=== PATIENT | male | born 1950 | race Caucasian/White ===

== ENCOUNTER 2019-01-11 08:40 | Inpatient (IN) ==
--- NOTE | 2018-12-23 08:50 | PAT Medication Instructions ---
Medication Instructions Date of Service December 23, 2018 Home Medications atorvastatin 40 mg PO HS cholecalciferol (vitamin D3) 5,000 unit PO QAM finasteride 5 mg PO QAM lisinopril 2.5 mg PO QAM loratadine [Claritin] 10 mg PO QAM meloxicam 15 mg PO QAM metformin 500 mg PO BID polyethylene glycol 3350 [Miralax] 17 g PO QDL potassium chloride 20 meq PO HS potassium chloride 40 meq PO QAM ranitidine HCl 150 mg PO BID spironolactone 50 mg PO QAM tamsulosin 0.4 mg PO QAM ASK your surgeon for instructions meloxicam 15 mg PO QAM DO NOT take the morning of surgery cholecalciferol (vitamin D3) 5,000 unit PO QAM finasteride 5 mg PO QAM lisinopril 2.5 mg PO QAM loratadine [Claritin] 10 mg PO QAM metformin 500 mg PO BID polyethylene glycol 3350 [Miralax] 17 g PO QDL potassium chloride 40 meq PO QAM spironolactone 50 mg PO QAM Take morning of surgery With a small sip of water, OTHERWISE NOTHING TO EAT OR DRINK AFTER MIDNIGHT: ranitidine HCl 150 mg PO BID tamsulosin 0.4 mg PO QAM Take evening before surgery atorvastatin 40 mg PO HS potassium chloride 20 meq PO HS ranitidine HCl 150 mg PO BID Other Notes If you have any questions please call us at [phone] or [phone] or [phone] or [phone]
--- NOTE | 2018-12-23 10:42 | Anesthesiology Consultation ---
Date of Service December 23, 2018 Assessment & Plan (1) Encounter for pre-operative examination: Plan: CHECK BSG AM DOS Chart Review Chart Review: Acceptable Risk for Surgery and Patient seen in Pre Admission Testing Teaching & Discussion Instructed NPO after midnight before surgery, except medications with 15 cc of water. Medication instructions provided according to the PAT guidelines. History Surgery Operation Date: 01/11/19 07:45 Proposed Procedures p L4-S1 Posterior Lumbar Decompression - Dalton Ware DO Height/Weight Height: 5 ft 11 in Weight: 154.6 kg Allergies Allergy/AdvReac Type Severity Reaction Status Date / Time Cipro Allergy Unknown "IT Verified 11/13/16 08:59 AFFECTS MY ACHILLES HEEL" ciprofloxacin Allergy Unknown "IT Verified 12/18/18 11:44 AFFECTS MY ACHILLES HEEL" Medications Home Medications Medication Instructions Recorded Confirmed Last Taken atorvastatin 40 mg PO HS 12/18/18 12/18/18 Unknown cholecalciferol (vitamin D3) 5,000 unit PO QAM 12/18/18 12/18/18 Unknown [Vitamin D3] finasteride 5 mg PO QAM 12/18/18 12/18/18 Unknown lisinopril 2.5 mg PO QAM 12/18/18 12/18/18 Unknown loratadine [Claritin] 10 mg PO QAM 12/18/18 12/18/18 Unknown meloxicam 15 mg PO QAM 12/18/18 12/18/18 Unknown metformin 500 mg PO BID 12/18/18 12/18/18 Unknown polyethylene glycol 3350 [Miralax] 17 g PO QDL 12/18/18 12/18/18 Unknown potassium chloride 20 meq PO HS 12/18/18 12/18/18 Unknown potassium chloride 40 meq PO QAM 12/18/18 12/18/18 Unknown ranitidine HCl 150 mg PO BID 12/18/18 12/18/18 Unknown spironolactone 50 mg PO QAM 12/18/18 12/18/18 Unknown tamsulosin 0.4 mg PO QAM 12/18/18 12/18/18 Unknown Past Medical History Medical History BPH (benign prostatic hyperplasia) Diabetes mellitus, type 2 Environmental allergies GERD (gastroesophageal reflux disease) Hyperlipidemia Hypertension Seasonal allergies Past Surgical History Surgical History H/O hemicolectomy 2/2 bowel obstruction History of knee replacement Both knees done x2 Hx of abdominal surgery For adhesions Hx of colonoscopy Hx of shoulder surgery rotator cuff repairs both shoulders Past Anesthesia History No Hx of Anesthesia Complications and No Family Hx of Anesthesia Complications 2015 RCR @ [facility]: MAC #4, ETT 7.5. Atraumatic DL x 1. History of PONV No Motion Sickness Screening History of Motion Sickness: Yes (occasionally) Social History Smoking Status: Former smoker Smoking cigarettes per day: h/o 1ppd x 25yrs Do You Dip or Chew Tobacco: No Smoking End Date: 1988 Hx Alcohol Use: Yes Alcohol type: beer alcohol intake frequency: a few times a month Hx Substance Use: No Exercise / Class Metabolic Activity II 4-5 Yardwork/Stairs/Walk up hill (has full flight of stairs at home, denies CP or SOB with stairs) Review of Systems Pt denies any recent chest pain, shortness of breath, palpitations, cough, fever or URI. Physical Exam Vital Signs BP: 108/73 P: 87bpm SPO2: 93% RA T: 98.2 F R: 18 Constitutional + morbidly obese ENMT Mouth: + dental restorations (one crown on a molar); no chipped teeth and no loose teeth Thyromental Distance: > or= 3.5 Finger Breadths (3.5) Mallampati Class: I Neck + short neck, + thick neck and + limited neck extension Respiratory normal respiratory effort Auscultation: lungs clear to auscultation bilaterally Cardiovascular Rate/Rhythm: regular rate and regular rhythm Heart Sounds: no murmur Vessels: no carotid bruit Testing Electrocardiogram Date: 12/23/18 Findings: + NSR @ (83) Chest X-Ray Date: 12/23/18 Findings: + NAD Laboratory Results 12/23/18 11:01 12/23/18 11:01 Blood Type O Positive 12/23/18 11:01 Antibody Screen NEGATIVE 12/23/18 11:01 PT 10.1 Seconds (9.0-12.0) 12/23/18 11:01 INR 1.0 (0.9-1.1) 12/23/18 11:01 APTT 27.0 Seconds (21.0-31.0) 12/23/18 11:01 Hemoglobin A1c 6.0 % (4.5-5.6) H 12/23/18 11:01 Urine Color Yellow 12/23/18 Unknown Urine Appearance Clear (Clear) 12/23/18 Unknown Urine pH 7.0 (4.5-7.5) 12/23/18 Unknown Ur Specific [place] 1.014 (1.000-1.030) 12/23/18 Unknown Urine Protein Negative (Negative) 12/23/18 Unknown Urine Glucose (UA) Negative (Negative) 12/23/18 Unknown Urine Ketones Negative (Negative) 12/23/18 Unknown Urine Nitrite Negative (Negative) 12/23/18 Unknown Ur Leukocyte Esterase Negative (Negative) 12/23/18 Unknown
--- NOTE | 2018-12-23 11:20 | XRay Report ---
XR chest Pre-admission PA/Lat CLINICAL HISTORY: Preoperative chest COMPARISON STUDY: 11/15/2011 FINDINGS: The cardiac and mediastinal contours are normal. There is no evidence of focal pulmonary co nsolidation. There is no evidence of failure. No pleural effusions are visualized.[ Presumed postsurg ical changes involve the distal clavicles. IMPRESSION: No active disease in the chest. Electronically signed by: Wyatt Phelps M.D. 12/23/2018 11:18 AM
[2018-12-23 12:19] LABS: Basophils # (auto) 0.05 K/uL (0-0.2); Basophils % (auto) 0.6 %; Eosinophils # (auto) 0.17 K/uL (0-0.5); Eosinophils % (auto) 2.1 %; Hematocrit (blood only) 39.2 % (42-52); Immature Granulocytes # (auto) 0.03 K/uL (0.00-0.02); Immature Granulocytes % (auto) 0.4 %; Lymphocytes # (auto) 1.94 K/uL (1.2-3.4); Lymphocytes % (auto) 23.9 %; Mean Corpuscular Hgb Conc 33.2 g/dL (32-36); Mean Corpuscular Volume 98.2 fL (80-100); Mean Platelet Volume 11.1 fL (7.4-10.4); Monocytes # (auto) 0.69 K/uL (0.11-0.59); Monocytes % (auto) 8.5 %; Neutrophils # (auto) 5.23 K/uL (1.4-6.5); Neutrophils % (auto) 64.5 %; Platelet Count 262 K/uL (130-400); RDW Coefficient of Variation 13.2 % (11.5-14.5); RDW Standard Deviation 47.3 fL (36.4-46.3); Red Blood Count 3.99 M/uL (4.7-6.1); White Blood Count 8.11 K/uL (4.8-10.8)
[2018-12-23 12:25] LABS: Appearance Urine Clear (Clear); Bilirubin Urine Negative (Negative); Color Urine Yellow; Glucose Urine UA Negative (Negative); Ketones Urine Negative (Negative); Leukocyte Esterase Urine Negative (Negative); Nitrite Urine Negative (Negative); Protein Urine Negative (Negative); Specific Gravity Urine 1.014 (1.000-1.030); Urobilinogen Urine Negative (Negative)
[2018-12-23 12:26] LABS: BUN Creatinine Ratio 16.1 (10-20); Creatinine Clr Calc Pharmacy 87.4 ml/min; Est GFR (African American) 71.3; Est GFR (Non-African American) 61.5; Potassium 4.2 mmol/L (3.5-5.1)
[2018-12-23 12:32] LABS: Prothrombin Time 10.1 Seconds (9.0-12.0)
[2018-12-23 13:18] LABS: Estimated Average Glucose 126 mg/dl
[~2019-01-11 08:40] MED LIST: ACETAMINOPHEN 500 MG TAB PO SCH; CEFAZOLIN 3000MG 65 ML IV SCH; CeleBREX 200 MG CAP PO SCH; GABAPENTIN 300 MG PO SCH; LR 15ML/HR IV SCH
[2019-01-11] MEDS ORDERED: ROCURONIUM BROMIDE 10 MG/ML 5 ML VIAL ONE (10:12)
[2019-01-11] MEDS ORDERED: LIDOCAINE HCL 2% 2 ML VIAL/AMP(20MG/ML) INFIL ONE (10:12)
[2019-01-11] MEDS ORDERED: PROPOFOL IV EMULSION 10 MG/ML 20 ML VIAL IV ONE (10:12)
[2019-01-11] MEDS ORDERED: MIDAZOLAM HCL 1 MG/ML 2ML VIAL ONE (10:13)
[2019-01-11] MEDS ORDERED: fentaNYL citrate 100 MCG/2 ML VIAL ONE ×5 (10:13→11:48)
[2019-01-11] MEDS ORDERED: PHENYLEPHRINE 100MCG/ML 5ML SYR IV PRN (10:14)
[2019-01-11] MEDS ORDERED: ONDANSETRON INJ 2 MG/ML 2 ML VIAL IV PRN ×2 (10:14→15:48)
[2019-01-11] MEDS ORDERED: MEPERIDINE HCL 25 MG/ML CARP IV PRN (10:14)
[2019-01-11] MEDS ORDERED: fentaNYL citrate 100 MCG/2 ML VIAL IV PRN (10:14)
[2019-01-11] MEDS ORDERED: ePHEDrine sulfate 50 MG/ML AMP IV PRN (10:14)
[2019-01-11] MEDS ORDERED: HYDROmorphone INJ 1 MG/ML SYRINGE IV PRN (10:14)
[2019-01-11] MEDS ORDERED: LABETALOL HCL IV 5 MG/ML 20ML IV PRN (10:14)
[2019-01-11] MEDS ORDERED: ATROPINE SULFATE 0.1 MG/ML 10ML SYR IV PRN (10:14)
--- NOTE | 2019-01-11 10:42 | History & Physical Bridge Note ---
Date of Service January 11, 2019 History & Physical Bridge Note I have examined the patient, reviewed the History & Physical and in the interval since the performance of the History & Physical I have noted the following changes of clinical significance: no changes noted
--- NOTE | 2019-01-11 10:43 | History & Physical Report ---
Date of Service January 11, 2019 Assessment & Plan (1) Neurogenic claudication due to lumbar spinal stenosis: Posterior lumbar decompression fusion L4-S1 Present on Admission?: Yes History of Present Illness Chief Complaint: Back and leg pain Primary Care Provider: Arthur Kendall This is a 68-year-old male that presents with chronic persistent back and leg pain. After failing extensive course of nonoperative care is here for surgical intervention. Allergies Allergy/AdvReac Type Severity Reaction Status Date / Time Cipro Allergy Unknown "IT Verified 11/13/16 08:59 AFFECTS MY ACHILLES HEEL" ciprofloxacin Allergy Unknown "IT Verified 01/11/19 09:15 AFFECTS MY ACHILLES HEEL" Home Medications Home Medications Medication Instructions Recorded Confirmed Type atorvastatin 40 mg PO HS 12/18/18 01/11/19 History cholecalciferol (vitamin D3) 5,000 unit PO QAM 12/18/18 01/11/19 History [Vitamin D3] finasteride 5 mg PO QAM 12/18/18 01/11/19 History lisinopril 2.5 mg PO QAM 12/18/18 01/11/19 History loratadine [Claritin] 10 mg PO QAM 12/18/18 01/11/19 History meloxicam 15 mg PO QAM 12/18/18 12/18/18 History metformin 500 mg PO BID 12/18/18 01/11/19 History polyethylene glycol 3350 [Miralax] 17 g PO QDL 12/18/18 01/11/19 History potassium chloride 20 meq PO HS 12/18/18 01/11/19 History potassium chloride 40 meq PO QAM 12/18/18 01/11/19 History ranitidine HCl 150 mg PO BID 12/18/18 01/11/19 History spironolactone 50 mg PO QAM 12/18/18 01/11/19 History tamsulosin 0.4 mg PO QAM 12/18/18 01/11/19 History Past Med/Surg History Medical History BPH (benign prostatic hyperplasia) Diabetes mellitus, type 2 Environmental allergies GERD (gastroesophageal reflux disease) Hyperlipidemia Hypertension Seasonal allergies Surgical History H/O hemicolectomy 2/2 bowel obstruction History of knee replacement Both knees done x2 Hx of abdominal surgery For adhesions Hx of colonoscopy Hx of shoulder surgery rotator cuff repairs both shoulders Social History Current Living Situation: Spouse Other Information That Helps Us Care for You: No Feels Safe at Home: Yes Safety Concerns: Feels Safe At This Time Smoking Status: Former smoker Cigarettes per Day: h/o 1ppd x 25yrs Do You Dip or Chew Tobacco: No Smoking End Date: 1988 Hx Alcohol Use: Yes Alcohol type: beer Alcohol Intake Frequency: a few times a month Hx Substance Use: No Beliefs That Will Affect Care: None Preferred Language: Nigerien Communication Ability: Effective Physical Exam 2 Vital Signs (Past 24 Hours): Last Vital Signs Temp 37.1 C 01/11/19 09:30 Pulse 91 H 01/11/19 09:30 Resp 20 01/11/19 09:30 BP 117/79 01/11/19 09:30 Pulse Ox 95 01/11/19 09:30 Results & Data Medications Administered Acetaminophen (Tylenol) 1,000 mg PO PREOP BIPIN Stop: 01/11/19 18:00 Last Admin: 01/11/19 09:57 Dose: 1,000 mg Celecoxib (Celebrex) 200 mg PO PREOP BIPIN Stop: 01/11/19 18:00 Last Admin: 01/11/19 09:56 Dose: 200 mg Gabapentin (Neurontin) 300 mg PO PREOP BIPIN Stop: 01/11/19 18:00 Last Admin: 01/11/19 09:56 Dose: 300 mg Lactated Ringer's (Lr) 1,000 mls @ 15 mls/hr IV .Q24H BIPIN Stop: 01/12/19 05:59 Last Admin: 01/11/19 09:39 Dose: 15 mls/hr
[2019-01-11] MEDS ORDERED: BACITRACIN INJ 50,000 UNIT VIAL ONE (10:48)
[2019-01-11] MEDS ORDERED: BUPIVACAINE/EPINEPHRINE 0.5% MPF 1:200,000 30 ML VIAL ONE (10:48)
[2019-01-11] MEDS ORDERED: FLOSEAL HEMOSTATIC MATRIX 10ML TOP ONE (12:41)
[2019-01-11] MEDS ORDERED: HYDROmorphone INJ 2 MG/ML SYR/VIAL ONE (12:55)
--- NOTE | 2019-01-11 13:51 | Fluoroscopy Report ---
FL lumbar spine 2-3V CLINICAL HISTORY: L4-S1 DECOMP/FUSIONpostoperative COMPARISON STUDY: None FLUOROSCOPY TIME: 25 seconds NUMBER OF FLUOROSCOPIC IMAGES: 3 FINDINGS: Low lumbar laminectomy and fusion IMPRESSION: Findings consistent with an L4-S1 laminectomy and fusion. The above report was generated using voice recognition software. It may contain grammatical, syntax or spelling errors. Electronically signed by: Eloy Kent M.D. 01/11/2019 1:50 PM
--- NOTE | 2019-01-11 13:55 | Operative Report ---
Post Operative Report Pre & Post Diagnosis Operation Date: 01/11/19 10:55 Pre-Op Diagnosis: Neurogenic claudication due to lumbar spinal stenosis Post-Op Diagnosis: Neurogenic claudication due to lumbar spinal stenosis Procedure Operation Date: 01/11/19 10:55 Actual Procedures #1 lumbar decompression medial facetectomies foraminotomies L3-4 L4-5 L5-S1 per #2 posterior spinal fusion L4-5 L5-S1. #3 please posterior segmental instrumentation L4-5 L5-S1. #4 interbody fusion L4-5 L5-S1. #5 placed titanium 12 x 26 mm cage L4-5 and 11 x 26 at L5-S1. #6 treatment of local autograft in the posterior gutters. #7 placement Feese collagen sponge bone mass graft in the posterior gutters and ostial amp and interbody space. Surgeon Dalton Ware DO Erecting Crane Operator Stella Harmon Estimated Blood Loss 250 Findings Consistent with Post-Op Diagnosis Specimens None Description of Procedure Patient was met with preoperatively case discussed all questions addressed. After informed consent obtained patient was taken to the operative suite underwent intubation placed in a prone position Hossein table on top of the Gabriel frame. All bony prominences well-padded eyes inspected to ensure no external pressure placed upon the. This point the lumbar spine was prepped and draped in normal sterile fashion. Sharp dissection with the assistance of Bovie cautery was performed down to and exposing the lamina and transverse process of L4-L5 and sacral ala bilaterally. From a caudal cephalad fashion complete laminectomy of L5 L4 and partial laminectomy L3 was performed putting medial facetectomies foraminotomies addressing severe spinal stenosis. Pedicle screws were then placed in L4-L5 and S1 levels bilaterally with assistance of fluoroscopy the process jace placed. The transforaminal approach on the right complete discectomy of L5-S1 was performed in plate coated to subcortical mean bone and a 11 x 26 mm titanium cage filled ostium bone graft tapped in position. Then proceeded L4-[address] of a transforaminal approach complete discectomy performed in plate coated to subcortical mean bone and a 12 x 26 mm titanium cage filled osteo-amp bone graft tapped in position. The rods were then compressed locked in final position bilaterally. Transverse processes of L4-L5 and sacral ala bur to subcortical B bone. Infuse collagen sponge mass graft local autograft placed in the posterior gutters. 15 round ANABEL drain inserted. Incision was then closed with 1 Vicryl fascia 2-0 Vicryl subcutaneous and 4-0 Monocryl for final skin closure Steri-Strip sterile dressings placed. Patient will continue to PACU stable disc. Please note Stella Harmon present throughout the entire procedure involved in patient positioning complex portions of the surgery and final skin closure I attest to the content of the Intraoperative Record and any orders documented therein. Any exceptions are noted below.
[2019-01-11] MEDS ORDERED: ONDANSETRON INJ 2 MG/ML 2 ML VIAL ONE (15:33)
--- NOTE | 2019-01-11 15:47 | Anesthesiology Progress Note ---
Date of Service January 11, 2019 Anesthesia Post Procedure Vital Signs Vital Signs: Temp Pulse Pulse Resp BP BP Pulse Ox 01/11/19 15:30 98 H 21 154/64 H 92 01/11/19 15:15 90 22 129/75 93 01/11/19 15:05 86 13 138/73 94 01/11/19 14:55 97.2 F L 90 22 130/75 96 01/11/19 14:45 93 H 16 118/80 96 01/11/19 14:35 98 H 19 130/73 100 01/11/19 14:25 93 H 17 149/95 H 96 01/11/19 14:15 90 18 128/75 91 01/11/19 14:06 98.6 F 90 18 101/71 91 01/11/19 09:30 98.8 F 91 H 20 117/79 95 Pain Intensity Back: Pain Intensity: 0 Notes Mental Status: alert / awake / arousable and participated in evaluation Patient Amnestic to Procedure: Yes Nausea / Vomiting: adequately controlled Pain: adequately controlled Airway Patency, RR, SpO2: stable & adequate BP & HR: stable & adequate Hydration State: stable & adequate Anesthetic Complications: no major complications apparent and Pt Satisfied with anesthetic care
[2019-01-11] MEDS ORDERED: METOCLOPRAMIDE HCL INJ 5 MG/ML 2 ML VIAL IV PRN (15:48)
[2019-01-11] MEDS ORDERED: BISACODYL 10 MG SUPP PR PRN (15:48)
[2019-01-11] MEDS ORDERED: FAMOTIDINE 20 MG TAB PO PRN (15:48)
[2019-01-11] MEDS ORDERED: LORazepam 0.5 MG/1 ML VIAL IV PRN (15:48)
[2019-01-11] MEDS ORDERED: ALUMINUM/MAGNESIUM SUSP 30 ML UDC PO PRN (15:48)
[2019-01-11] MEDS ORDERED: DO NOT ADMINISTER FLU VACCINE PRN (15:48)
[2019-01-11] MEDS ORDERED: ONDANSETRON 4 MG TAB PO PRN (15:48)
[2019-01-11] MEDS ORDERED: SOD PHOSPHATE/SOD BIPHOSPHATE ENEMA 132 ML BTL PR PRN (15:48)
[2019-01-11] MEDS ORDERED: DO NOT ADMINISTER PNEUMOCOCCAL VACCINE PRN (15:48)
[2019-01-11] MEDS ORDERED: ACETAMINOPHEN 500 MG TAB PO PRN (15:48)
[2019-01-11] MEDS ORDERED: PROMETHAZINE HCL 12.5 MG in SODIUM CHLORIDE 0.9% 50 ML IV PRN (15:48)
[2019-01-11] MEDS ORDERED: ACETAMINOPHEN 1,000 MG/100 ML VIAL IV PRN (15:48)
[2019-01-11] MEDS ORDERED: GLUCOSE 40% GEL 15 GM TUBE PO PRN (16:40)
[2019-01-11] MEDS ORDERED: GLUCAGON FOR INJ 1 MG VIAL SQ PRN (16:40)
[2019-01-11] MEDS ORDERED: CARBOHYDRATES FOR HYPOGLYCEMIA PO PRN (16:40)
[2019-01-11] MEDS ORDERED: GLUCOSE 10 TABS/TUBE PO PRN (16:40)
[2019-01-11] MEDS ORDERED: DEXTROSE 50% 50 ML SYRINGE IV PRN (16:40)
[2019-01-11] MEDS: SODIUM CHLORIDE 0.9% 1000ML 1,000 ML IV SCH ×2 (16:42→23:04)
--- NOTE | 2019-01-11 16:42 | Hospitalist Consultation ---
Date of Consultation January 11, 2019 Assessment & Plan (1) Status post lumbar spine surgery for decompression of spinal cord: This is a 68yo M with a PMH of DM II, HTN, HLD, BPH and lumbar spine stenosis who is POD#0 s/p decompression fusion of L4-S1 by Dr. Ware. -Per ortho for pain control, wound care, anticoagulation and activities -Monitor H&H (baseline hgb of 13 on 12/23/18). EBL: 250ml, ANABEL drain output: 110ml -Continue incentive spirometry, PT/OT when appropriate (2) Diabetes mellitus, type II: Well controlled. Recent a1c of 6.0 on 12/23/18 -Hold home medication -Did not receive pre-op steroids -SSI while in-patient -BSG checks AC HS (3) HTN (hypertension): Normotensive BP -Continue morning Lisinopril and HCTZ with hold parameters (4) HLD (hyperlipidemia): Continue atorvastatin (5) BPH (benign prostatic hyperplasia): Continue Tamsulosin and Finasteride (6) Vitamin D deficiency: Continue Vit D supplement PCP: Dr. Kendall ([place]) Dispo: Per primary service Patient seen in collaboration with Dr. Ritter. Please see addendum. Thank you for this consultation. We will follow the patient with you during their hospital stay. You can reach a member of the [facility] Hospitalist Team 23/06 via pager at . Supervising Physician Co-Signing Physician Notes HISTORY: Record reviewed. Patient interviewed and examined. Care coordinated with Reta Bernal PA-C. Please refer to her documentation for patient's history. Briefly, 68 YO male with history of hypertension, DM type 2, and other problems. Underwent lumbar decompression / fusion today. Doing fairly well postoperatively. Had some nausea which has resolved. No chest pain, cough, SOB, nausea, vomiting. Has White cath postop. Pain fairly well-controlled. EXAM: General- no distress Lungs- clear to auscultation; no respiratory distress Cardiovascular- RRR; no murmur; no gallop; no JVD; no pretibial edema Abdomen- + bowel sounds, soft, nontender Extremities- no cyanosis; no calf tenderness; TEDS and SCD's applied Neuro- alert, oriented Skin- warm & dry DATA: Preop labs were done on 12/23/18. Hemoglobin 13.0, white count 8110, platelet count 262,000. Prothrombin time 10.1 with an INR of 1.0. PTT 27.0. Sodium 135, potassium 4.2, chloride 92, CO2 30, BUN 19, creatinine 1.19, glucose 108, hemoglobin A1c 6.0: Chest x-ray was unremarkable. EKG performed on 12/23/18 reviewed and demonstrated normal sinus rhythm at 80/ minute, no acute changes. ASSESSMENT AND PLAN: Doing well postoperatively. History of hypertension. Continue usual antihypertensives with hold parameters. Diabetes mellitus type 2, well controlled on metformin. Hold metformin during hospital stay. Insulin coverage as needed. Please refer to MARIALUISA Bernal's documentation for discussion of other issues. Thank you for this consultation. We will follow the patient with you during their hospital stay. My cell # is [phone]. You can reach a member of the [facility] Medicine Team 23/06 via pager @ [phone]. Dr. John will assume medical management 01/12/19. History of Present Illness Reason for Consultation: post op med mgmt Attending Physician: Dalton Ware DO History of Present Illness This is a 68yo M with a PMH of DM II, HTN, HLD, BPH and lumbar spine stenosis who is POD#0 s/p decompression fusion of L4-S1 by Dr. Ware. Patient is experiencing 8/10 pain at surgical incision site but received pain medication during my evaluation. Was reportedly hypoxic at 88% during revovery in PACU but improved to 98% on Oxymask. Also had initial nausea in PACU that has resolved with Zofran. Patient is drowsy but A&O x 3. Follows with Dr. Kendall in [place]. Has well-controlled DM II with recent a1c of 6 in December 2018. Denies fever, chills, lightheadedness, cough, chest pain, palpitations, SOB, nausea, vomiting or abdominal pain. Denies h/o CHF but takes spironolactone for BLE edema. Denies history of CO, DVT/PE or stroke. Allergies Allergy/AdvReac Type Severity Reaction Status Date / Time Cipro Allergy Unknown "IT Verified 11/13/16 08:59 AFFECTS MY ACHILLES HEEL" ciprofloxacin Allergy Unknown "IT Verified 01/11/19 09:15 AFFECTS MY ACHILLES HEEL" Home Medications Home Medications Medication Instructions Recorded Confirmed Type atorvastatin 40 mg PO HS 12/18/18 01/11/19 History cholecalciferol (vitamin D3) 5,000 unit PO QAM 12/18/18 01/11/19 History [Vitamin D3] finasteride 5 mg PO QAM 12/18/18 01/11/19 History lisinopril 2.5 mg PO QAM 12/18/18 01/11/19 History loratadine [Claritin] 10 mg PO QAM 12/18/18 01/11/19 History meloxicam 15 mg PO QAM 12/18/18 12/18/18 History metformin 500 mg PO BID 12/18/18 01/11/19 History polyethylene glycol 3350 [Miralax] 17 g PO QDL 12/18/18 01/11/19 History potassium chloride 20 meq PO HS 12/18/18 01/11/19 History potassium chloride 40 meq PO QAM 12/18/18 01/11/19 History ranitidine HCl 150 mg PO BID 12/18/18 01/11/19 History spironolactone 50 mg PO QAM 12/18/18 01/11/19 History tamsulosin 0.4 mg PO QAM 12/18/18 01/11/19 History Patient History Medical History Neurogenic claudication due to lumbar spinal stenosis (Chronic) BPH (benign prostatic hyperplasia) Diabetes mellitus, type 2 Environmental allergies GERD (gastroesophageal reflux disease) Hyperlipidemia Hypertension Seasonal allergies Surgical History H/O hemicolectomy 2/2 bowel obstruction History of knee replacement Both knees done x2 Hx of abdominal surgery For adhesions Hx of colonoscopy Hx of shoulder surgery rotator cuff repairs both shoulders Family History Father Lung cancer Social History Current Living Situation: Spouse Other Information That Helps Us Care for You: No Feels Safe at Home: Yes Safety Concerns: Feels Safe At This Time Smoking Status: Former smoker Cigarettes per Day: h/o 1ppd x 25yrs Do You Dip or Chew Tobacco: No Smoking End Date: 1988 Hx Alcohol Use: Yes Alcohol type: beer Alcohol Intake Frequency: a few times a month Hx Substance Use: No Beliefs That Will Affect Care: None Preferred Language: German Communication Ability: Effective Review of Systems Constitutional: + fatigue; no fever, no chills and no weakness Eyes: no worsening vision Ear, Nose, Mouth, Throat: no nasal congestion and no sore throat Respiratory: no cough, no chest congestion, no dyspnea and no wheezing Cardiovascular: no chest pain, no syncope and no edema Gastrointestinal: no nausea, no vomiting and no change in stools Musculoskeletal: + back pain Integumentary: no rash, no non-healing lesions and no skin ulcer Neurologic: no localized weakness, no numbness, no paresthesia, no syncope, no headache(s) and no confusion Psychiatric: no behavioral changes Physical Exam 2 Vital Signs (Past 24 Hours): Last Vital Signs Temp 36.8 C 01/11/19 16:04 Pulse 88 01/11/19 16:04 Resp 18 01/11/19 16:04 BP 106/71 01/11/19 16:04 Pulse Ox 99 01/11/19 16:04 Physical Exam: General Appearance: WD/WN, no apparent distress, morbidly obese, lethargic but cooperative during exam Head: normocephalic, atraumatic Eyes: normal inspection, PERRL, EOMI ENT: hearing grossly normal, pharynx normal (moist mucous membranes) Neck: supple, no JVD, no adenopathy Respiratory/Chest: lungs clear to auscultation. No wheezes, rales or rhonci. No respiratory distress or accessory muscle use Cardiovascular: regular rate, rhythm, no murmur, normal peripheral pulses Abdomen/GI: normal bowel sounds, soft, non-tender to palpation : White catheter draining yellow urine Extremities/Musculoskelatal: normal inspection, surgical dressing intact, ANABEL drain visualized, no calf tenderness, normal capillary refill, no pedal edema, + SCDs Neurologic/Psych: alert, normal mood/affect, oriented x 3, 5/5 SUSAN of ankles Skin: normal color, warm/dry Results & Data Laboratory Results Pertinent pre-operative labs (12/23/18): Hgb: 13 Cr: 1.19 GFR: 61.5 Hgb a1c: 6
[2019-01-11] MEDS: TRAMADOL HCL 50 MG TABLET PO PRN ×2 (16:43→21:31)
[2019-01-11] MEDS: KETOROLAC TROMETHAMINE 15 MG/ML VIAL IV SCH ×2 (16:43→21:48)
[2019-01-11] MEDS: CEFAZOLIN 2000MG 2,000 MG/15 ML SYR IV SCH (17:46)
[2019-01-11] MEDS: INSULIN ASPART 100 UNITS/ML 3 ML PEN SC SCH ×2 (17:47→20:52)
[2019-01-11] MEDS: ATORVASTATIN 40 MG TAB PO SCH (20:51)
[2019-01-11] MEDS: DOCUSATE SODIUM/SENNA 50/8.6MG TAB PO SCH (20:52)
[2019-01-11] MEDS ORDERED: POTASSIUM CHLORIDE 20 MEQ TABCR PO SCH (21:00)
[2019-01-12] MEDS: CEFAZOLIN 2000MG 2,000 MG/15 ML SYR IV SCH (02:55)
[2019-01-12] MEDS: KETOROLAC TROMETHAMINE 15 MG/ML VIAL IV SCH ×2 (02:55→09:11)
[2019-01-12] MEDS: POLYETHYLENE (MIRALAX) 17 GM PACK PO SCH ×3 (05:24→18:09)
[2019-01-12 06:16] LABS: Basophils # (auto) 0.01 K/uL (0-0.2); Basophils % (auto) 0.1 %; Hematocrit (blood only) 34.2 % (42-52); Hemoglobin 11.3 g/dL (14.0-18.0); Immature Granulocytes # (auto) 0.08 K/uL (0.00-0.02); Immature Granulocytes % (auto) 0.5 %; Lymphocytes # (auto) 1.33 K/uL (1.2-3.4); Lymphocytes % (auto) 7.6 %; Mean Corpuscular Volume 98.6 fL (80-100); Mean Platelet Volume 10.5 fL (7.4-10.4); Monocytes # (auto) 1.28 K/uL (0.11-0.59); Monocytes % (auto) 7.3 %; Neutrophils # (auto) 14.85 K/uL (1.4-6.5); Neutrophils % (auto) 84.5 %; Platelet Count 273 K/uL (130-400); RDW Coefficient of Variation 13.6 % (11.5-14.5); RDW Standard Deviation 48.8 fL (36.4-46.3); Red Blood Count 3.47 M/uL (4.7-6.1); White Blood Count 17.55 K/uL (4.8-10.8)
[2019-01-12 06:42] LABS: BUN Creatinine Ratio 22.5 (10-20); Calcium 7.7 mg/dl (8.5-10.1); Est GFR (African American) 62.3; Est GFR (Non-African American) 53.8
[2019-01-12] MEDS: SODIUM CHLORIDE 0.9% 1000ML 1,000 ML IV SCH (07:04)
[2019-01-12] MEDS: LORazepam 0.5 MG TAB PO PRN ×2 (07:22→22:52)
--- NOTE | 2019-01-12 08:19 | Anesthesiology Progress Note ---
Date of Service January 12, 2019 Anesthesia Post Procedure Vital Signs Vital Signs: Temp Pulse Pulse Pulse Resp BP BP 01/12/19 07:08 36.6 C 92 H 20 128/83 01/12/19 03:12 36.6 C 95 H 16 112/75 01/11/19 23:00 36.5 C 94 H 16 105/70 01/11/19 22:00 95 H 20 132/81 01/11/19 18:18 36.8 C 91 H 20 99/67 L 01/11/19 17:18 36.6 C 95 H 20 112/76 01/11/19 17:00 36.3 C L 95 H 20 120/68 01/11/19 16:04 36.8 C 88 18 106/71 01/11/19 15:40 36.4 C L 83 18 131/68 01/11/19 15:30 98 H 21 154/64 H 01/11/19 15:15 90 22 129/75 01/11/19 15:05 86 13 138/73 01/11/19 14:55 36.2 C L 90 22 130/75 01/11/19 14:45 93 H 16 118/80 01/11/19 14:35 98 H 19 130/73 01/11/19 14:25 93 H 17 149/95 H 01/11/19 14:15 90 18 128/75 01/11/19 14:06 37.0 C 90 18 101/71 01/11/19 09:30 37.1 C 91 H 20 117/79 Pulse Ox 01/12/19 07:08 93 01/12/19 03:12 93 01/11/19 23:00 92 01/11/19 22:00 95 01/11/19 18:18 95 01/11/19 17:18 98 01/11/19 17:00 100 01/11/19 16:04 99 01/11/19 15:40 98 01/11/19 15:30 92 01/11/19 15:15 93 01/11/19 15:05 94 01/11/19 14:55 96 01/11/19 14:45 96 01/11/19 14:35 100 01/11/19 14:25 96 01/11/19 14:15 91 01/11/19 14:06 91 02/11/19 09:30 95 Pain Intensity Back: Pain Intensity: 4 Notes Mental Status: alert / awake / arousable and participated in evaluation Nausea / Vomiting: adequately controlled Pain: adequately controlled Airway Patency, RR, SpO2: stable & adequate BP & HR: stable & adequate Hydration State: stable & adequate Anesthetic Complications: see Notes below Notes: pt states he had N/V post anethestic. Notified him to alert staff with any future surgeries. pt feeling fine this morning and tolerating food.
[2019-01-12] MEDS: LORATADINE 10 MG TAB PO SCH (08:23)
[2019-01-12] MEDS: LISINOPRIL 2.5 MG TAB PO SCH (08:24)
[2019-01-12] MEDS: FINASTERIDE 5 MG TAB PO SCH (08:24)
[2019-01-12] MEDS: TAMSULOSIN HCL 0.4 MG CAP PO SCH (08:24)
[2019-01-12] MEDS: INSULIN ASPART 100 UNITS/ML 3 ML PEN SC SCH ×4 (08:28→20:55)
[2019-01-12] MEDS: OXYCODONE HCL IR 5 MG TAB (IMMEDIATE RELEASE) PO PRN ×3 (08:31→23:57)
--- NOTE | 2019-01-12 08:57 | Hospitalist Progress Note ---
Addendum entered and electronically signed by Angela Quach PA-C 14:37: Addendum (Blank) Addendum January 12, 2019 14:36 Dx: Morbid Obesity with BMI of 45.0-49.9 -counseled on weight loss reduction -heart healthy/carb consistent diet Original Note: Date of Service January 12, 2019 Assessment & Plan (1) Status post lumbar spine surgery for decompression of spinal cord: This is a 68yo M with a PMH of DM II, HTN, HLD, BPH and lumbar spine stenosis. POD#1 s/p decompression fusion of L4-S1 by Dr. Ware. -Per ortho for pain control, wound care, anticoagulation and activities -Monitor H&H (baseline hgb of 13 on 12/23/18) H/H 11.3 and 34.2 today EBL: 250ml, ANABEL drain output: 380ml -Continue incentive spirometry, PT/OT when appropriate (2) Acute blood loss anemia: -H/H stable at 11.3 and 34.2 -pre-op Hbg 13.0 -follow cbc (3) Renal insufficiency, mild: -Bun/Cr 30 and 1.33 with BUN/CR ratio >20 -likely mild pre renal azotemia -encourage patient to push fluids today -will hold aldactone and KCL supplement and re-eval in a.m. (4) Diabetes mellitus, type II: Well controlled. Recent a1c of 6.0 on 12/23/18 -Hold home metformin -Did not receive pre-op steroids -SSI while in-patient -BSG checks AC HS (5) HTN (hypertension): Normotensive BP -Continue morning Lisinopril, but will hold aldactone today given slight elevation bun/cr -further hold KCL supplement at K today is 5.0 -repeat bmp in a.m. -monitor K closely given pt on katy, aldactone and KCL supplement (6) HLD (hyperlipidemia): Continue atorvastatin (7) BPH (benign prostatic hyperplasia): Continue Tamsulosin and Finasteride (8) Vitamin D deficiency: Continue Vit D supplement PCP: Dr. Kendall ([place]) Dispo: Per primary service DVT PPX: Per ortho Patient seen in collaboration with Dr. John. Please see addendum. Thank you for this consultation. We will follow the patient with you during their hospital stay. You can reach a member of the [facility]ist Team 23/06 via pager at [phone]. Supervising Physician Co-Signing Physician Notes ATTENDING ADDENDUm 68 m s/p spinal decompression surgery has minimum pain and surgical site doing PT/OT morbid obesiy : BMI > 40 pt is counselled life style modification - wt loss diet and exercise -to reduce obesity related co morbitidy mild dehydratiaon /bordeline hyperkalemia : hold diuretics , K supplement repeat labs Samra John MD Subjective Patient was seen and examined in room 306. Follow-up of POD #1 lumbar decompression fusion. Patient is sitting in bedside chair. He offers no complaints. "I am doing better than I was yesterday." States he slept well. Denies fever, chills, sweats, lightheadedness, dizziness, chest pain, shortness of breath, nausea, vomiting, abdominal pain. He is not passing much flatus. He tolerated breakfast. He has been up and ambulating minimally with therapy. Physical Exam 2 Vital Signs (Past 24 Hours): Last Vital Signs Temp 36.6 C 01/12/19 07:08 Pulse 92 H 01/12/19 07:08 Resp 20 01/12/19 07:08 BP 128/83 01/12/19 07:08 Pulse Ox 93 01/12/19 07:08 Physical Exam: Gen: WD/WN, M, sitting at bedside, Morbidly obese, pleasent, NAD, A&O x3 HEENT: Normocephalic, atraumatic, conjunctivae moist, sclerae anicteric, mucous membranes moist. 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 Lumbar incision dressing CDI : +White with clear urine output Results & Data Laboratory Results Short CBC 12/23/18 01/12/19 01/12/19 Range/Units 11:01 05:43 05:43 WBC 17.55 H (4.8-10.8) K/uL Hgb 11.3 L (14.0-18.0) g/dL Hct 34.2 L (42-52) % Plt Count 273 (130-400) K/uL BUN 19 H 30 H (7-18) mg/dl Creatinine 1.19 1.33 (0.6-1.4) mg/dl [facility] 01/12/19 05:43 Sodium 134 L Potassium 5.0 Chloride 104 Carbon Dioxide 28 BUN 30 H Creatinine 1.33 Glucose 135 H Calcium 7.7 L
[2019-01-12] MEDS ORDERED: POTASSIUM CHLORIDE 20 MEQ TABCR PO SCH (09:00)
[2019-01-12] MEDS ORDERED: SPIRONOLACTONE 25 MG TAB PO SCH (09:00)
--- NOTE | 2019-01-12 09:22 | Orthopedic Progress Note ---
Date of Service January 12, 2019 Assessment & Plan (1) Neurogenic claudication due to lumbar spinal stenosis: This time will initiate physical therapy today. Advance his bowel regimen. Anticipate discharge home later half of this week. Present on Admission?: Yes Subjective Patient's back pain is controlled. Leg symptoms improved. Physical Exam 2 Vital Signs (Past 24 Hours): Last Vital Signs Temp 36.6 C 01/12/19 07:08 Pulse 92 H 01/12/19 07:08 Resp 20 01/12/19 07:08 BP 128/83 01/12/19 07:08 Pulse Ox 93 01/12/19 07:08 Physical Exam: Patient is in the chair at the bedside. He has good strength testing. Appears comfortable.
[2019-01-12] MEDS: TRAMADOL HCL 50 MG TABLET PO PRN (17:32)
[2019-01-12] MEDS: ATORVASTATIN 40 MG TAB PO SCH (20:55)
[2019-01-12] MEDS: DOCUSATE SODIUM/SENNA 50/8.6MG TAB PO SCH (20:56)
[2019-01-13] MEDS: POLYETHYLENE (MIRALAX) 17 GM PACK PO SCH ×5 (00:01→23:40)
[2019-01-13] MEDS: OXYCODONE HCL IR 5 MG TAB (IMMEDIATE RELEASE) PO PRN ×4 (04:27→18:50)
[2019-01-13 06:13] LABS: Hematocrit (blood only) 30.4 % (42-52); Hemoglobin 10.1 g/dL (14.0-18.0); Mean Corpuscular Hgb Conc 33.2 g/dL (32-36); Mean Corpuscular Volume 98.7 fL (80-100); Mean Platelet Volume 9.8 fL (7.4-10.4); Platelet Count 223 K/uL (130-400); RDW Standard Deviation 49.9 fL (36.4-46.3); Red Blood Count 3.08 M/uL (4.7-6.1); White Blood Count 13.68 K/uL (4.8-10.8)
[2019-01-13 06:43] LABS: BUN Creatinine Ratio 20.8 (10-20); Calcium 7.6 mg/dl (8.5-10.1); Est GFR (African American) 62.3; Est GFR (Non-African American) 53.8; Potassium 4.2 mmol/L (3.5-5.1)
[2019-01-13] MEDS: HYDROmorphone INJ 0.5 MG/0.5 ML SYR IV PRN ×3 (07:51→22:01)
[2019-01-13] MEDS: LORATADINE 10 MG TAB PO SCH (07:56)
[2019-01-13] MEDS: TAMSULOSIN HCL 0.4 MG CAP PO SCH (07:56)
[2019-01-13] MEDS: MAGNESIUM HYDROXIDE SUSP 30 ML UDC PO PRN (07:56)
[2019-01-13] MEDS: FINASTERIDE 5 MG TAB PO SCH (07:56)
[2019-01-13] MEDS: INSULIN ASPART 100 UNITS/ML 3 ML PEN SC SCH ×4 (08:32→21:26)
--- NOTE | 2019-01-13 08:40 | Hospitalist Progress Note ---
Date of Service January 13, 2019 Assessment & Plan (1) Status post lumbar spine surgery for decompression of spinal cord: This is a 68yo M with a PMH of DM II, HTN, HLD, BPH and lumbar spine stenosis. POD#2 s/p decompression fusion of L4-S1 by Dr. Ware. -Per ortho for pain control, wound care, anticoagulation and activities -Monitor H&H (baseline hgb of 13 on 12/23/18) H/H 10.1 and 30.4 EBL: 250ml -Continue incentive spirometry, PT/OT when appropriate (2) Acute blood loss anemia: -H/H stable at 10.1 and 30.4 -pre-op Hbg 13.0 -follow cbc (3) Renal insufficiency, mild: -Bun/Cr 28 and 1.33 with BUN/CR ratio >20 -likely mild pre renal azotemia -encourage patient to push fluids today -will continue to hold aldactone and KEAGAN but will re-start K at 20meq bid -repeat bmp in a.m. (4) Hyponatremia: - NA 131 today, 135 pre op -monitor bmp -continue to hold aldactone (5) Diabetes mellitus, type II: Well controlled. Recent a1c of 6.0 on 12/23/18 -Hold home metformin -Did not receive pre-op steroids -SSI while in-patient -BSG checks AC HS are appropriate (6) HTN (hypertension): Normotensive BP -Continue to hold KEAGAN and Aldactone give hyponatremia -repeat bmp in a.m. (7) HLD (hyperlipidemia): Continue atorvastatin (8) BPH (benign prostatic hyperplasia): -Continue Tamsulosin and Finasteride (9) Morbid obesity with BMI of 45.0-49.9, adult: -encouraged lifestyle modifications (10) Vitamin D deficiency: -Continue Vit D supplement PCP: Dr. Kendall ([place]) Dispo: Per primary service DVT PPX: Per ortho Patient seen in collaboration with Dr. Ritter. Please see addendum. Thank you for this consultation. We will follow the patient with you during their hospital stay. You can reach a member of the [facility] Hospitalist Team 23/06 via pager at [phone]. Supervising Physician Co-Signing Physician Notes Care coordinated with Angela Quach PA-C. Experiencing some postop back pain. Constipated. Having some difficulty voiding, but not much worse than baseline. Feels a little SOB. No fever. Occasional nonproductive cough. EXAM: General- no distress Neck- neck veins difficult to assess Lungs- few basilar rales Heart- RRR Abd- + BS, soft, nontender Extr- trace edema; no calf tenderness CXR- no infiltrates or CHF. A/P: SOB No apparent pneumonia or CHF. Continue incentive spirometry. URINARY RETENTION History of BPH. Continue finasteride and tamsulosin. CONSTIPATION Bowel regimen as ordered. Other problems as outlined by MARIALUISA Quach. Subjective Patient was seen and examined in room 306. Follow-up of POD #2 lumbar decompression fusion. Patient is sitting in bedside chair. He states, "I'm not doing so well today." Complains of low back pain b/l with radiation to b/l buttock, "same pain I had prior to surgery." Pain was 7/10 but recently received analgesia now 3/10. Denies f/c/s, dizziness, lightheaded, chest pain, sob, n/v/d. No BM since surgery. Is not passing much flatus, but denies abdominal pain. Appetite is good and he is pushing fluid. He has been ambulating with PT. Further complains of feeling "tightness with deep breathing," but no overt SOB, wheezing or chest pain. He has been doing incentive spirometer. Physical Exam 2 Vital Signs (Past 24 Hours): Last Vital Signs Temp 36.7 C 01/13/19 07:01 Pulse 100 H 01/13/19 07:01 Resp 18 01/13/19 07:01 BP 118/76 01/13/19 07:01 Pulse Ox 90 01/13/19 07:01 Physical Exam: Gen: WD/WN, M, sitting at bedside, Morbidly obese, pleasent, NAD, A&O x3 HEENT: Normocephalic, atraumatic, conjunctivae moist, sclerae anicteric, mucous membranes moist. 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 Lumbar incision dressing CDI : [place] removed Results & Data Laboratory Results Short CBC 01/13/19 Range/Units 05:52 WBC 13.68 H (4.8-10.8) K/uL Hgb 10.1 L (14.0-18.0) g/dL Hct 30.4 L (42-52) % Plt Count 223 (130-400) K/uL BMP 01/13/19 05:52 Sodium 131 L Potassium 4.2 D Chloride 100 Carbon Dioxide 25 BUN 28 H Creatinine 1.33 Glucose 124 H Calcium 7.6 L
[2019-01-13] MEDS ORDERED: BISACODYL 5 MG TABEC PO SCH (09:15)
[2019-01-13] MEDS: POTASSIUM CHLORIDE 20 MEQ TABCR PO SCH ×2 (09:30→21:03)
[2019-01-13 12:28] LABS: Appearance Urine Clear (Clear); Bilirubin Urine Negative (Negative); Color Urine Yellow; Glucose Urine UA Negative (Negative); Ketones Urine Negative (Negative); Leukocyte Esterase Urine Negative (Negative); Nitrite Urine Negative (Negative); Protein Urine Negative (Negative); Specific Gravity Urine 1.018 (1.000-1.030); Urobilinogen Urine Negative (Negative)
[2019-01-13] MEDS: LORazepam 0.5 MG TAB PO PRN (12:42)
--- NOTE | 2019-01-13 13:05 | Orthopedic Progress Note ---
Date of Service January 13, 2019 Assessment & Plan (1) Neurogenic claudication due to lumbar spinal stenosis: This time we will continue physical therapy. I will add a dose of Decadron to help with his inflammatory pain. For discharge home by the weekend. Present on Admission?: Yes Subjective Patient is complaining of back and buttock pain today. Physical Exam 2 Vital Signs (Past 24 Hours): Last Vital Signs Temp 36.9 C 01/13/19 10:46 Pulse 94 H 01/13/19 10:46 Resp 20 01/13/19 10:46 BP 138/76 01/13/19 10:46 Pulse Ox 90 01/13/19 10:46 Physical Exam: On exam he is in the chair at the bedside. Is good strength testing.
--- NOTE | 2019-01-13 15:40 | XRay Report ---
XR chest 1V portable CLINICAL HISTORY: SOB dyspnea COMPARISON STUDY: 12/23/2017 FINDINGS: Mild bibasilar atelectasis. Lungs otherwise remain clear. Mild cardia megaly. Diaphragms sm ooth. IMPRESSION: Mild bibasilar atelectatic change. The above report was generated using voice recognition software. It may contain grammatical, syntax or spelling errors. Electronically signed by: Eloy Kent M.D. 01/13/2019 3:39 PM
[2019-01-13] MEDS ORDERED: BISACODYL 5 MG TABEC PO PRN (19:00)
[2019-01-13] MEDS: DOCUSATE SODIUM/SENNA 50/8.6MG TAB PO SCH (21:04)
[2019-01-13] MEDS: ATORVASTATIN 40 MG TAB PO SCH (21:04)
[2019-01-13] MEDS: DEXAMETHASONE **PF** 10 MG in DEXTROSE 5% 25 ML IV SCH (21:22)
[2019-01-14] MEDS: HYDROmorphone INJ 0.5 MG/0.5 ML SYR IV PRN (05:15)
[2019-01-14] MEDS: POLYETHYLENE (MIRALAX) 17 GM PACK PO SCH ×3 (05:16→17:39)
[2019-01-14 06:27] LABS: Basophils # (auto) 0.01 K/uL (0-0.2); Basophils % (auto) 0.1 %; Hemoglobin 10.1 g/dL (14.0-18.0); Immature Granulocytes # (auto) 0.04 K/uL (0.00-0.02); Immature Granulocytes % (auto) 0.4 %; Lymphocytes # (auto) 1.02 K/uL (1.2-3.4); Lymphocytes % (auto) 9.3 %; Mean Corpuscular Hgb Conc 33.7 g/dL (32-36); Mean Corpuscular Volume 97.4 fL (80-100); Mean Platelet Volume 10.3 fL (7.4-10.4); Monocytes # (auto) 0.64 K/uL (0.11-0.59); Monocytes % (auto) 5.9 %; Neutrophils # (auto) 9.22 K/uL (1.4-6.5); Neutrophils % (auto) 84.3 %; Platelet Count 249 K/uL (130-400); RDW Coefficient of Variation 13.8 % (11.5-14.5); RDW Standard Deviation 49.1 fL (36.4-46.3); Red Blood Count 3.08 M/uL (4.7-6.1); White Blood Count 10.93 K/uL (4.8-10.8)
[2019-01-14 06:55] LABS: BUN Creatinine Ratio 19.6 (10-20); Calcium 8.2 mg/dl (8.5-10.1); Creatinine Clr Calc Pharmacy 87.2 ml/min; Est GFR (African American) 71.3; Est GFR (Non-African American) 61.5; Potassium 4.4 mmol/L (3.5-5.1)
[2019-01-14] MEDS: LORATADINE 10 MG TAB PO SCH (07:33)
[2019-01-14] MEDS: MAGNESIUM HYDROXIDE SUSP 30 ML UDC PO PRN (07:48)
[2019-01-14] MEDS ORDERED: BISACODYL 10 MG SUPP PR PRN (08:20)
[2019-01-14] MEDS: POTASSIUM CHLORIDE 20 MEQ TABCR PO SCH ×2 (08:51→20:04)
[2019-01-14] MEDS: TAMSULOSIN HCL 0.4 MG CAP PO SCH (08:51)
[2019-01-14] MEDS: FINASTERIDE 5 MG TAB PO SCH (08:52)
[2019-01-14] MEDS: INSULIN ASPART 100 UNITS/ML 3 ML PEN SC SCH ×4 (08:54→22:01)
[2019-01-14] MEDS: OXYCODONE HCL IR 5 MG TAB (IMMEDIATE RELEASE) PO PRN ×2 (08:58→23:01)
--- NOTE | 2019-01-14 09:01 | Orthopedic Progress Note ---
Date of Service January 14, 2019 Assessment & Plan (1) Neurogenic claudication due to lumbar spinal stenosis: At this time we will continue physical therapy and advance his bowel regimen as tolerated. He is struggling with significant spasms requiring continued medication and assistance for ambulation. Hopefully he will improve over the next few days for discharge home. Present on Admission?: Yes Subjective Patient's back pain is controlled at rest. Activity does produce some back and buttock discomfort. He describes it as spasms. He has not had a bowel movement as of yet. Physical Exam 2 Vital Signs (Past 24 Hours): Last Vital Signs Temp 36.5 C 01/14/19 07:18 Pulse 105 H 01/14/19 07:18 Resp 20 01/14/19 07:18 BP 154/79 H 01/14/19 07:18 Pulse Ox 94 01/14/19 07:18 Physical Exam: On exam is good strength testing. Abdomen is soft.
[2019-01-14] MEDS: DEXAMETHASONE **PF** 10 MG in DEXTROSE 5% 25 ML IV SCH ×2 (09:13→21:19)
[2019-01-14] MEDS: DOCUSATE SODIUM/SENNA 50/8.6MG TAB PO SCH (20:03)
[2019-01-14] MEDS: ATORVASTATIN 40 MG TAB PO SCH (20:04)
--- NOTE | 2019-01-14 20:43 | Hospitalist Progress Note ---
Date of Service January 14, 2019 Assessment & Plan (1) Status post lumbar spine surgery for decompression of spinal cord: POD # 3. Postop pain improved. (2) HTN (hypertension): BP's stable. Resume usual home meds. (3) Diabetes mellitus, type II: Hgb A1C 6.0 on 12/23/18. FBS 159. Continue insulin coverage as needed. Resume metformin upon discharge. (4) Renal insufficiency, mild: Serum creatinine as high as 1.33. Creatinine today = 1.19. Avoid NSAID's if possible. (5) Hyponatremia: Sodium as low as 131. Sodium today = 133. Follow. (6) Acute blood loss anemia: Hgb 13.0 preop --> 10.1. Probable acute blood loss anemia from surgery. (7) BPH (benign prostatic hyperplasia): Had some urinary retention postoperatively. Now voiding more easily and PVR's improved. Continue tamsulosin and finasteride. (8) Constipation: Bowel regimen as ordered. (9) DVT prophylaxis: Per Ortho protocol. (10) Encounter for consultation: Thank you for this consultation. We will follow the patient with you during their hospital stay. My cell # is [phone]. You can reach a member of the [facility] Medicine Team 23/06 via pager @ [phone]. Subjective Recheck for multiple medical problems. Pt seen in his room around 1030. Feels better today. Postop back pain improved. No fever. No chest pain. No cough or SOB. No nausea or vomiting. Passing flatus, but no stool. Urinary urgency and postvoid resuduals improved. Physical Exam 2 Vital Signs (Past 24 Hours): Last Vital Signs Temp 36.8 C 01/14/19 15:19 Pulse 96 H 01/14/19 15:19 Resp 22 01/14/19 15:19 BP 145/82 H 01/14/19 15:19 Pulse Ox 93 01/14/19 15:19 Constitutional: no acute distress Respiratory: no respiratory distress Auscultation: lungs clear to auscultation bilaterally Cardiovascular: Rate/Rhythm: regular rate and regular rhythm Heart Sounds: no gallop Vessels: no JVD ((difficult to assess)) Extremities: + edema ( trace pretibial); no calf tenderness Gastrointestinal (Abdomen): normal bowel sounds, soft, nontender, no hepatosplenomegaly Skin: no rashes, warm and dry Psychiatric: Orientation: alert and oriented x 3 Results & Data Laboratory Results Short CBC 01/14/19 Range/Units 05:45 WBC 10.93 H (4.8-10.8) K/uL Hgb 10.1 L (14.0-18.0) g/dL Hct 30.0 L (42-52) % Plt Count 249 (130-400) K/uL BMP 01/14/19 05:45 Sodium 133 L Potassium 4.4 Chloride 98 Carbon Dioxide 29 BUN 23 H Creatinine 1.19 Glucose 142 H Calcium 8.2 L
[2019-01-15] MEDS: POLYETHYLENE (MIRALAX) 17 GM PACK PO SCH ×3 (00:12→12:52)
[2019-01-15 07:35] LABS: BUN Creatinine Ratio 20.8 (10-20); Calcium 8.1 mg/dl (8.5-10.1); Creatinine Clr Calc Pharmacy 93.5 ml/min; Est GFR (African American) 77.6; Est GFR (Non-African American) 66.9; Potassium 3.9 mmol/L (3.5-5.1)
[2019-01-15] MEDS: LORATADINE 10 MG TAB PO SCH (09:04)
[2019-01-15] MEDS: POTASSIUM CHLORIDE 20 MEQ TABCR PO SCH (09:06)
[2019-01-15] MEDS: FINASTERIDE 5 MG TAB PO SCH (09:07)
[2019-01-15] MEDS: TAMSULOSIN HCL 0.4 MG CAP PO SCH (09:07)
[2019-01-15] MEDS: INSULIN ASPART 100 UNITS/ML 3 ML PEN SC SCH ×2 (09:09→12:47)
[2019-01-15] MEDS: DEXAMETHASONE **PF** 10 MG in DEXTROSE 5% 25 ML IV SCH (09:14)
[2019-01-15] MEDS: LISINOPRIL 2.5 MG TAB PO SCH (10:01)
--- NOTE | 2019-01-15 12:20 | Hospitalist Progress Note ---
Date of Service January 15, 2019 Assessment & Plan (1) Status post lumbar spine surgery for decompression of spinal cord: POD # 4. Postop pain improved. (2) HTN (hypertension): BP's stable. Resumed usual home meds. (3) Diabetes mellitus, type II: Hgb A1C 6.0 on 12/23/18. FBS 137. Received insulin coverage as needed. Resume metformin upon discharge. (4) Renal insufficiency, mild: Serum creatinine as high as 1.33. Creatinine today = 1.11. Avoid NSAID's if possible. (5) Hyponatremia: Sodium as low as 131. Sodium today = 134. Follow. (6) Acute blood loss anemia: Hgb 13.0 preop --> 10.1. Probable acute blood loss anemia from surgery. (7) BPH (benign prostatic hyperplasia): Had some urinary retention postoperatively. Now voiding more easily and PVR's improved. Continue tamsulosin and finasteride. (8) Constipation: Bowel regimen as ordered. (9) DVT prophylaxis: Per Ortho protocol. (10) Encounter for consultation: Thank you for this consultation. We will follow the patient with you during their hospital stay. My cell # is [phone]. You can reach a member of the [facility] Medicine Team 23/06 via pager @ [phone]. Subjective Recheck for multiple medical problems. Pt seen in his room around 1130. Doing well. Postop back pain improved. No fever. No chest pain. No cough or SOB. No nausea or vomiting. Passing flatus and stool. Urinating without difficulty. Physical Exam 2 Vital Signs (Past 24 Hours): Last Vital Signs Temp 36.5 C 01/15/19 07:09 Pulse 101 H 01/15/19 09:08 Resp 18 01/15/19 07:09 BP 134/74 01/15/19 09:08 Pulse Ox 98 01/15/19 07:09 Constitutional: no acute distress Respiratory: no respiratory distress Auscultation: lungs clear to auscultation bilaterally Cardiovascular: Rate/Rhythm: regular rate and regular rhythm Heart Sounds: no gallop Vessels: no JVD ((difficult to assess)) Extremities: + edema ( trace pretibial); no calf tenderness Gastrointestinal (Abdomen): normal bowel sounds, soft, nontender, no hepatosplenomegaly Skin: no rashes, warm and dry Psychiatric: Orientation: alert and oriented x 3 Results & Data Laboratory Results Laboratory Results - last 24 hr 01/14/19 01/15/19 01/15/19 21:49 06:25 08:09 Sodium 134 L Potassium 3.9 Chloride 99 Carbon Dioxide 29 Anion Gap 6.0 BUN 23 H Creatinine 1.11 Est Cr Clr Drug Dosing 93.5 Est GFR ( Amer) 77.6 Est GFR (Non-Af Amer) 66.9 BUN/Creatinine Ratio 20.8 H Glucose 140 H POC Glucose 227 H 137 H Calcium 8.1 L 01/15/19 12:07 Sodium Potassium Chloride Carbon Dioxide Anion Gap BUN Creatinine Est Cr Clr Drug Dosing Est GFR ( Amer) Est GFR (Non-Af Amer) BUN/Creatinine Ratio Glucose POC Glucose 117 H Calcium
[2019-01-15] MEDS: OXYCODONE HCL IR 5 MG TAB (IMMEDIATE RELEASE) PO PRN (12:55)
--- NOTE | 2019-01-15 15:09 | Discharge Summary ---
Date of Service January 15, 2019 Admission HPI Per Admitting Provider This is a 68-year-old male that presents with chronic persistent back and leg pain. After failing extensive course of nonoperative care is here for surgical intervention. Principal Diagnosis Lumbar spinal stenosis with neurogenic claudication Discharge Data Allergies Allergy/AdvReac Type Severity Reaction Status Date / Time Cipro Allergy Unknown "IT Verified 11/13/16 08:59 AFFECTS MY ACHILLES HEEL" ciprofloxacin Allergy Unknown "IT Verified 01/11/19 09:15 AFFECTS MY ACHILLES HEEL" Consultations 01/11/19 15:48 Consult Case Management - Discharge Planning Routine Consult Hospitalist Routine Procedures Performed Operation Date: 01/11/19 10:55 Actual Procedures p L4-S1 Posterior Lumbar Decompression and Fusion(Not Applicable) - Dalton Ware DO Ordered Studies 01/11/19 10:55 FL fluoroscopy <1hr Routine FL lumbar spine 2-3V Routine Hospital Course (1) Neurogenic claudication due to lumbar spinal stenosis: Patient underwent lumbar decompression fusion tolerated as well as taken the orthopedic floor postoperative. Postop day #1 he was up and ambulating with physical therapy. He did require significant additional pain medication throughout the next few days. His ANABEL drain decreased appropriately. He was safely discharged home on Friday. Discharge orders and instructions can be found chart for further review. Total Time Total Time Spent Total Time Spent (In Minutes): Not applicable Discharge Plan Discharge Items Patient Disposition: Home - Self-Care Reason For Visit: Other Biomechanical Lesions of Lumbar Region Discharge Diagnosis: lumbar stenosis Discharge Goals: Improve function Activity: Per 'Additional Instructions' section Non-emergency contact: Primary Care Provider Call non-emergency contact if: you have any medication questions Follow-up/Referrals: Arthur Kendall [Primary Care Provider] - Diet: Regular Addtl Provider Instructions: ACTIVITY RECOMMENDATIONS: SELF CARE INSTRUCTIONS AFTER THORACIC/LUMBAR FUSIONS 1. You may walk to your tolerance. It is good exercise for your legs and back. Expect some back and intermittent leg aches and pains. 2. You may perform "counter-top" level activities (make a sandwich, silvia with a project, etc.). 3. No bending or lifting of more than 10 pounds or back twisting of any nature (roll like a log when turning in bed). 4. You may ride in a car for 20-30 minutes at a time. No driving until after your first visit with your doctor. 5. Frequent changes of position and restricting sitting to 30 minutes at a time will help limit the amount of back spasms and stiffness you may experience. 6. You may discontinue the use of ambulatory aids (cane, crutches, etc.) once your strength and confidence allow. 7. You may cyber systems engineer the shower and let water strike your incision when you arrive home at least once daily. Do not take a tub bath, sit in a hot tub or go into a swimming pool until after your first recheck in the office. SPECIAL CARE INSTRUCTIONS: VERY IMPORTANT TO READ AND REVIEW A. Your surgical incision has been closed with a cosmetic suture under the skin that will dissolve in about 6 weeks. In 14 days, you can use a pair of clean scissors and cut the suture that is left outside of the skin at the ends of your incision. 1. The small skin tapes can be removed 7 days after surgery if they have not fallen off by that point. 2. You may keep the wound open to air as much as possible to promote healing after post-op day number 5 unless told otherwise by your doctor. 3. If you think the wound looks like it is becoming infected (redness or worsening drainage) and/or you are experiencing fever, chill or worsening back pain and muscle spasms, contact the office so that we may evaluate you as soon as possible. B. Complications are uncommon, but please contact us if you have any signs or symptoms of: 1. wound infection (fever higher than 102.5 degrees F, redness, separation of wound, drainage, or increasing pain from the incision) 2. blood clots in legs (pain, swelling, redness and warmth in legs) 3. urinary tract infection (fever higher than 102.5 degrees F, burning upon urination or increased frequency of urination) 4. nerve problems (inability to walk on your toes or heels, numbness, loss of bowel or bladder control) 5. any other symptoms that concern you C. Please call the office at if you have any concerns or questions about your operation or recovery. D. No smoking! Smoking drastically decreases the chance of a solid fusion. E. Do not take any anti-inflammatory medications (Indocin, Advil, Motrin, Aspirin, Naprosyn, etc.) as these may inhibit the chance of a solid fusion. Tylenol is okay to take for pain. MANAGING PAIN AFTER SPINAL SURGERY 1. Narcotic medication is intended for short-term use and will be provided for surgical pain. Surgical pain usually lasts for a period of 4-6 weeks. Narcotic medication includes Percocet, Vicodin, Darvocet, Tylenol #3 or Lortab. 2. Longer-term pain is more appropriately treated with non-narcotic medication such as Tylenol ES. 3. Muscle spasm is not appropriately treated with narcotics. Muscle relaxers such as Soma, Flexeril or Skelaxin can be used along with Tylenol ES. 4. Remember that we all live with some "aches and pains". This is not unusual or uncommon after an injury or as we get older. a. Back pain is expected and may include muscle spasms for 4 to 6 weeks after surgery. The pain should gradually improve. If the pain worsens for no apparent reason, please contact the office. b. Intermittent leg pain may also be experienced and should not be concerned about unless it worsens for no apparent reason. If so, please contact the office. 5. We will provide appropriate medication within the normal guidelines of their prescribed use. We will also be very cautious and aware of potential abuse and extended duration of patients' medication needs. a. Pain medications are for your comfort and to assist with sleep and rest so that the tissue can heal. They are not provided in order to return to normal activity and should not be used through the day. To do so or worsening pain at night can result from ongoing tissue damage and development of tolerance to the prescribed medicine. 6. Please allow 2-3 days to process refills. Prescriptions will not be mailed but must be picked up at the office. FOLLOW UP VISIT: Keep your scheduled follow-up appointment. Any questions, please call the office at . Prescriptions: New tramadol 50 mg Tablet 50 mg PO Q4H PRN (Reason: Pain, Moderate) Qty: 30 RF: 0 oxycodone 5 mg Tablet 5 mg PO Q4H PRN (Reason: Pain, Severe) Qty: 30 RF: 0 Continue atorvastatin 40 mg Tablet 40 mg PO HS RF: 0 metformin 500 mg Tablet 500 mg PO BID RF: 0 tamsulosin 0.4 mg Capsule 0.4 mg PO QAM RF: 0 ranitidine HCl 150 mg Tablet 150 mg PO BID RF: 0 polyethylene glycol 3350 [Miralax] 17 gram/dose Powder 17 g PO QDL RF: 0 lisinopril 2.5 mg Tablet 2.5 mg PO QAM RF: 0 finasteride 5 mg Tablet 5 mg PO QAM RF: 0 spironolactone 50 mg Tablet 50 mg PO QAM RF: 0 potassium chloride 20 mEq Tablet Extended Release 80 meq PO QAM RF: 0 potassium chloride 20 mEq Tablet Extended Release 40 meq PO HS RF: 0 cholecalciferol (vitamin D3) [Vitamin D3] 5,000 unit Tablet 5,000 unit PO QAM RF: 0 loratadine [Claritin] 10 mg Tablet 10 mg PO QAM RF: 0 Discontinued meloxicam 15 mg Tablet 15 mg PO QAM RF: 0 Stand-Alone Forms: On License Of [facility] Discharge Orders: Discharge Order (Routine); Ordered 01/15/19 Ordered By: Dalton Ware Admission Data Admit Date/Time: 01/11/19 14:05 Attending Provider: Dalton Ware Admit Provider: Dalton Ware Primary Care Provider: Arthur Kendall Other Providers: Jamil Ritter Ayesha H Service: Surgical Services Other Interventions: Discharge Summary Assessment (RN) Last Done: 01/15/19 13:31 DC Date/Time DO NOT enter until pt leaves facility: 01/15/19 14:27
== END 2019-01-15 14:27 | disposition home or self-care (01) | DRG 454 ==
LOC: ASU 08:40 → 3E 14:05